=== PATIENT | female | born 1975 | race Caucasian/White ===

== ENCOUNTER 2020-09-07 12:51 | Observation (INO) ==
[2020-09-07] MEDS ORDERED: Ketorolac 15 MG/ML VIAL IVP ONE (13:40)
[2020-09-07 13:53] LABS: Basophils # 0.1 K/mcL (0.0-0.2); Basophils % 0.6 %; Eosinophils # 0.3 K/mcL (0.0-0.6); Eosinophils % 3.2 %; Hematocrit 45.1 % (35.3-44.9); Immature Granulocytes % 0.2 % (0-4); Lymphocytes # 3.2 K/mcL (0.6-4.6); Lymphocytes % 34.5 %; Mean Corpuscular HGB Conc 33.3 g/dL (31.6-35.5); Mean Corpuscular Hemoglobin 31.3 pg (28.0-33.3); Mean Corpuscular Volume 94.2 fL (83.0-100.0); Mean Platelet Volume 9.7 fL (9.4-12.4); Monocytes # 0.6 K/mcL (0.0-1.3); Monocytes % 5.9 %; Neutrophils # 5.2 K/mcL (1.6-8.9); Platelet Count 304 K/mcL (140-400); Red Blood Count 4.79 M/mcL (3.82-4.97); Red Cell Distribution Width 12.7 % (11.5-14.5); Segmented Neutrophils % 55.6 %; White Blood Count 9.3 K/mcL (4.3-11.1)
[2020-09-07 14:13] LABS: Albumin 4.2 g/dL (3.5-5.7); Albumin/Globulin Ratio 1.4 (1.1-2.2); Bilirubin,Indirect 0.4 mg/dL (0.0-1.0); Bilirubin,Total 0.4 mg/dL (0.3-1.0); Calcium 9.8 mg/dL (8.6-10.3); Potassium 3.9 mEq/L (3.5-5.1); Total Protein 7.2 g/dL (6.4-8.9)
[2020-09-07 14:23] LABS: Bilirubin,Urine Negative (Negative); Blood,Urine Small (Negative); Clarity,Urine Clear (Clear); Color,Urine Light-Yellow (Yellow); Glucose,Urine (UA) Normal (Normal); Hyaline Casts,Urine Few per lpf (None Seen); Ketones,Urine Negative (Negative); Leukocyte Esterase,Urine Moderate (Negative); Mucus,Urine Few per lpf (None-Few); Nitrite,Urine Negative (Negative); PH,Urine 6.5 pH Units (5.0-8.0); Protein,Urine Negative (Neg-Trace); Specific Gravity,Urine 1.018 (1.010-1.025); Squamous Epithelial Cell,Urine Few per hpf (None-Few); Urobilinogen,Urine Normal (Normal)
[2020-09-07] MEDS ORDERED: cefTRIAXone 1,000 MG in Water for inj. (sterile) 10 ML IVP ONE (15:29)
[2020-09-07 17:27] LABS: Adenovirus Not Detected (Not Detect); Bordetella Pertussis Not Detected (Not Detect); Chlamydophila pneumoniae Not Detected (Not Detect); Coronavirus 229E Not Detected (Not Detect); Coronavirus HKU1 Not Detected (Not Detect); Coronavirus NL63 Not Detected (Not Detect); Coronavirus OC43 Not Detected (Not Detect); Human Metapneumovirus Not Detected (Not Detect); Human Rhinovirus/Enterovirus Not Detected (Not Detect); Influenza A Subtype 2009 H1 Not Detected (Not Detect); Influenza B Not Detected (Not Detect); Mycoplasma pneumoniae Not Detected (Not Detect); Parainfluenza Virus 1 Not Detected (Not Detect); Parainfluenza Virus 2 Not Detected (Not Detect); Parainfluenza Virus 3 Not Detected (Not Detect); Parainfluenza Virus 4 Not Detected (Not Detect); Respiratory Syncytial Virus Not Detected (Not Detect); SARS-CoV-2 Not Detected (Not Detect)
[2020-09-07] MEDS ORDERED: Ondansetron 4 MG/2 ML VIAL IVP PRN (18:02)
[2020-09-07] MEDS ORDERED: Naloxone 0.4 MG/ML INJ IVP PRN (18:02)
[2020-09-07] MEDS ORDERED: Ketorolac 15 MG/ML VIAL IVP PRN (18:05)
[2020-09-07] MEDS ORDERED: valACYclovir 500 MG TABLET PO PRN (18:07)
[2020-09-07] MEDS ORDERED: RisperiDAL 3 MG TABLET PO SCH (21:00)
[2020-09-07] MEDS ORDERED: risperiDONE 1 MG TABLET PO SCH (21:00)
[2020-09-07] MEDS: *HR* OxyCODONE Immed Rel 15 MG TABLET PO SCH (21:18)
[2020-09-07] MEDS: Gabapentin 400 MG CAPSULE PO SCH (21:18)
[2020-09-07] MEDS: ALPRAZolam 1 MG TABLET PO SCH (21:18)
[2020-09-07] MEDS: Topiramate 100 MG TABLET PO SCH (21:18)
[2020-09-07] MEDS: 0.9 % Sodium Chloride 1,000 ML IVC SCH (21:28)
[2020-09-08] MEDS: *HR* OxyCODONE Immed Rel 15 MG TABLET PO SCH ×3 (00:35→11:34)
[2020-09-08 03:27] LABS: Basophils # 0.1 K/mcL (0.0-0.2); Basophils % 0.6 %; Eosinophils # 0.4 K/mcL (0.0-0.6); Hematocrit 40.3 % (35.3-44.9); Hemoglobin 13.8 g/dL (11.5-15.4); Immature Granulocytes % 0.4 % (0-4); Lymphocytes # 4.7 K/mcL (0.6-4.6); Mean Corpuscular HGB Conc 34.2 g/dL (31.6-35.5); Mean Corpuscular Hemoglobin 31.6 pg (28.0-33.3); Mean Corpuscular Volume 92.2 fL (83.0-100.0); Mean Platelet Volume 10.2 fL (9.4-12.4); Monocytes # 0.7 K/mcL (0.0-1.3); Monocytes % 6.6 %; Neutrophils # 4.3 K/mcL (1.6-8.9); Platelet Count 282 K/mcL (140-400); Red Blood Count 4.37 M/mcL (3.82-4.97); Red Cell Distribution Width 12.5 % (11.5-14.5); Segmented Neutrophils % 42.4 %; White Blood Count 10.1 K/mcL (4.3-11.1)
[2020-09-08 03:38] LABS: Calcium 9.1 mg/dL (8.6-10.3); Potassium 3.9 mEq/L (3.5-5.1)
[2020-09-08] MEDS: 0.9 % Sodium Chloride 1,000 ML IVC SCH (08:11)
[2020-09-08] MEDS: ALPRAZolam 1 MG TABLET PO SCH ×2 (08:12→12:16)
[2020-09-08] MEDS: Topiramate 100 MG TABLET PO SCH (08:13)
[2020-09-08] MEDS: Gabapentin 400 MG CAPSULE PO SCH ×2 (08:13→12:16)
[2020-09-08] MEDS ORDERED: Loratadine 10 MG TABLET PO SCH (09:00)
[2020-09-08] MEDS ORDERED: Lactobacillus 1 EACH CAP.SPRINK PO SCH (09:00)
[2020-09-08] MEDS ORDERED: BuPROPion XL (24 HR) 150 MG TABLET PO SCH ×2 (09:00)
[2020-09-08] MEDS ORDERED: cefTRIAXone 1,000 MG in Water for inj. (sterile) 10 ML IVP SCH (09:00)
[2020-09-08] MEDS ORDERED: *HR* Midazolam HCl 2 MG/2 ML VIAL ONE (09:50)
[2020-09-08] MEDS ORDERED: *HR* FentaNYL (PF) 100 MCG/2 ML VIAL ONE (09:50)
[2020-09-08] MEDS ORDERED: *HR* Propofol 200 MG/20 ML VIAL IVP ONE (09:50)
[2020-09-08] MEDS ORDERED: Ondansetron 4 MG/2 ML VIAL ONE (09:50)
[2020-09-08] MEDS ORDERED: Dexamethasone 4 MG/ML VIAL ONE (09:50)
[2020-09-08] MEDS ORDERED: Lidocaine -MPF 2% 2 ML VIAL ONE (09:50)
[2020-09-08] MEDS ORDERED: Isovue-300 50ML VIAL ONE (10:06)
[2020-09-08] MEDS ORDERED: EPHEDrine 50 MG/ML VIAL ONE (12:14)
[2020-09-08] MEDS ORDERED: Ondansetron 4 MG/2 ML VIAL IVP PRN (13:17)
[2020-09-08] MEDS ORDERED: 0.9 % Sodium Chloride 1,000 ML IVC SCH (13:17)
[2020-09-08] MEDS ORDERED: Naloxone 0.4 MG/ML INJ IVP PRN (13:17)
[2020-09-08] MEDS ORDERED: Ketorolac 15 MG/ML VIAL IVP PRN (13:17)
[2020-09-08] MEDS ORDERED: valACYclovir 500 MG TABLET PO PRN (13:17)
[2020-09-08] MEDS ORDERED: FLU Vac QV 20-21 (6Month+)/PF 0.5 ML SYRINGE IM ONE (15:46)
[2020-09-08] MEDS ORDERED: *HR* OxyCODONE Immed Rel 15 MG TABLET PO SCH (16:00)
[2020-09-08 16:02] VITALS: BP 120/88
[2020-09-08] MEDS ORDERED: ALPRAZolam 1 MG TABLET PO SCH (17:00)
[2020-09-08] MEDS ORDERED: Gabapentin 400 MG CAPSULE PO SCH (17:00)
[2020-09-08] MEDS ORDERED: Topiramate 100 MG TABLET PO SCH (21:00)
[2020-09-09] MEDS ORDERED: cefTRIAXone 1,000 MG in Water for inj. (sterile) 10 ML IVP SCH (09:00)
[2020-09-09] MEDS ORDERED: Loratadine 10 MG TABLET PO SCH (09:00)
[2020-09-09] MEDS ORDERED: BuPROPion XL (24 HR) 150 MG TABLET PO SCH ×2 (09:00)
[2020-09-09] MEDS ORDERED: Lactobacillus 1 EACH CAP.SPRINK PO SCH (09:00)
== END 2020-09-08 16:06 | disposition home or self-care (01) ==
LOC: EMEROOARM 12:51 → 3ANU 12:51 → SUATTDRO 16:12 → 3ANU 17:10
PROVIDERS: ADMIT Internal Medicine; ATTEND Internal Medicine